=== PATIENT | male | born 1960 | race Caucasian/White ===

== ENCOUNTER → 2016-12-09 | Outpatient (CLI) | payer MEDICARE, MEDICAID ==
[~2016-12-09] MED LIST: ALBUTEROL0.09 MG/A2 INH; AMOXICILLIN500 MG PO; ASPIR 8181 MG PO; ASPIR-LOW81 MG PO; AUGMENTIN 875 M1 TAB PO; BACTRIM DS 8001 TAB PO; CARAFATE1 G1 PO; CIPROFLOXACIN500 MG PO; CLARITIN10 MG PO; COUMADIN2 MG; COUMADIN2 MG PO; COUMADIN3 M1 PO; DICYCLOMINE HYD20 MG PO; FLEXERIL5 MG PO; HYZAAR 12.5 MG-1 TA1 PO; HYZAAR 12.5 MG-1 TAB PO; INDERAL20 MG PO; INDERAL40 MG; IRON325 M1; LASIX; LOVENOX100 MG/1 M PO; LOVENOX80 MG/0.8 SC; MAXZIDE 25 MG-31 TAB PO; MIRALAX POWDER17 G1 PO; MOTRIN800 MG PO; Micro K10 MEQ PO; NORCO 325 MG-51 TAB PO; PERCOCET 325 MG1 TA2 PO; PERCOCET 325 MG1 TA5 PO; PERCOCET 325 MG1 TA7 PO; PLAVIX75 MG PO; PREDNICOT20 MG PO; PREDNISONE10 M1 PO; PREVACID30 M1 PO; PRILOSEC20 MG PO; PROTONIX TR40 MG PO; ROBAXIN500 MG PO; TRAMADOL HCL50 MG PO; ULTRAM50 MG PO; VOLTAREN50 MG PO; ZITHROMAX Z PA250 MG PO; ZOFRAN4 MG; ZOFRAN4 MG PO
[2016-12-09 13:03] LABS: INTERNATIONAL NORM RATIO 2.9 (2.0-3.5); PROTHROMBIN TIME 31.5 SECONDS (9.0-12.4)
== END | disposition home or self-care (01) ==
LOC: LAB 12:09
PROVIDERS: Family Medicine
DX: Z79.01 Long term (current) use of anticoagulants (principal)

== ENCOUNTER 2017-02-12 23:21 | Emergency (ER) | payer MEDICARE, MEDICAID ==
[~2017-02-12] VITALS: Ht 172.7 cm; Wt 86.2 kg
[2017-02-13] MEDS ORDERED: MEDROL DOSEPAK4 MG PO (01:05)
[2017-02-13] MEDS ORDERED: PERCOCET 325 MG1 TA2 PO (01:05)
== END 2017-02-13 01:12 | disposition home or self-care (01) ==
LOC: ED 23:21
DX: M54.16 Radiculopathy, lumbar region (principal); Z79.899 Other long term (current) drug therapy; Z79.82 Long term (current) use of aspirin; Z79.01 Long term (current) use of anticoagulants; Z88.6 Allergy status to analgesic agent; Z88.5 Allergy status to narcotic agent

== ENCOUNTER → 2017-02-23 | Outpatient (CLI) | payer MEDICARE, MEDICAID ==
[~2017-02-23] MED LIST changes: +MEDROL DOSEPAK4 MG PO; +OXYCODONE HCL10 M1 PO
== END | disposition home or self-care (01) ==
LOC: MRI 06:51
DX: M47.896 Other spondylosis, lumbar region (principal); M54.5 Low back pain; R53.1 Weakness; Z85.038 Personal history of other malignant neoplasm of large intestine

== ENCOUNTER 2017-02-24 20:40 | Emergency (ER) | payer MEDICARE, MEDICAID ==
[~2017-02-24] VITALS: Ht 172.7 cm; Wt 86.2 kg
[~2017-02-24 20:40] MED LIST changes: -OXYCODONE HCL10 M1 PO
[2017-02-24] MEDS ORDERED: OXYCODONE HCL10 M1 PO (20:57)
[2017-02-24] MEDS ORDERED: MEDROL DOSEPAK4 MG PO (21:25)
== END 2017-02-24 21:36 | disposition home or self-care (01) ==
LOC: ED 20:40
DX: M54.16 Radiculopathy, lumbar region (principal); M79.604 Pain in right leg; Z88.6 Allergy status to analgesic agent; Z79.82 Long term (current) use of aspirin; Z79.01 Long term (current) use of anticoagulants

== ENCOUNTER → 2017-02-26 | Outpatient (CLI) | payer MEDICARE, MEDICAID ==
[~2017-02-26] MED LIST changes: +OXYCODONE HCL10 M1 PO
[2017-02-26 09:43] LABS: INTERNATIONAL NORM RATIO 3.3 (2.0-3.5); PROTHROMBIN TIME 37.7 SECONDS (9.0-12.4)
== END | disposition home or self-care (01) ==
LOC: LAB 08:54
PROVIDERS: Family Medicine
DX: Z79.01 Long term (current) use of anticoagulants (principal)

== ENCOUNTER 2017-03-02 16:44 | Emergency (ER) | payer MEDICARE, MEDICAID ==
[~2017-03-02] VITALS: Wt 86.2 kg
[2017-03-02] MEDS ORDERED: PERCOCET 325 MG1 TA2 PO (18:43)
== END 2017-03-02 18:51 | disposition home or self-care (01) ==
LOC: ED 16:44
DX: M54.16 Radiculopathy, lumbar region (principal); Z88.6 Allergy status to analgesic agent; Z79.82 Long term (current) use of aspirin; Z79.02 Long term (current) use of antithrombotics/antiplatelets

== ENCOUNTER → 2017-05-18 | Outpatient (CLI) | payer MEDICARE, MEDICAID ==
[2017-05-18 11:52] LABS: INTERNATIONAL NORM RATIO 2.5 (2.0-3.5); PROTHROMBIN TIME 28.2 SECONDS (9.0-12.4)
== END | disposition home or self-care (01) ==
LOC: LAB 10:55
PROVIDERS: Family Medicine
DX: Z79.01 Long term (current) use of anticoagulants (principal)

== ENCOUNTER 2017-07-30 00:51 | Emergency (ER) | payer MEDICARE, MEDICAID ==
[~2017-07-30] VITALS: Ht 172.7 cm; Wt 86.2 kg
== END 2017-07-30 02:50 | disposition home or self-care (01) ==
LOC: ED 00:51
DX: M25.512 Pain in left shoulder (principal); M54.9 Dorsalgia, unspecified; Z88.6 Allergy status to analgesic agent; Z79.82 Long term (current) use of aspirin; Z79.02 Long term (current) use of antithrombotics/antiplatelets

== ENCOUNTER → 2017-09-09 | Outpatient (CLI) | payer MEDICARE, MEDICAID | END | disposition home or self-care (01) | LOC: LAB 10:36 | PROVIDERS: Family Medicine | DX: I82.503 Chronic embolism and thrombosis of unspecified deep veins of lower extremity, bilateral (principal) ==

== ENCOUNTER → 2017-12-02 | Outpatient (CLI) | payer MEDICARE, MEDICAID ==
[2017-12-02 16:17] LABS: INTERNATIONAL NORM RATIO 3.3 (2.0-3.5)
== END | disposition home or self-care (01) ==
LOC: LAB 15:54
PROVIDERS: Family Medicine
DX: I82.503 Chronic embolism and thrombosis of unspecified deep veins of lower extremity, bilateral (principal)

== ENCOUNTER → 2018-01-05 | Outpatient (CLI) | payer MEDICARE, MEDICAID ==
[2018-01-05 11:53] LABS: HEMATOCRIT 50.2 % (42.0-52.0); HEMOGLOBIN 16.5 g/dl (14.0-18.0); MEAN CELL VOLUME 90.8 fl (80.0-94.0); MEAN CORPUSCULAR HGB 29.8 pg (27.0-31.0); MEAN CORPUSCULAR HGB CONC 32.9 g/dl (33.0-37.0); MEAN PLATELET VOLUME 8.9 fl (9.6-12.3); RED BLOOD COUNT 5.53 10*6/uL (4.50-5.90); RED CELL DISTRI WIDTH 13.7 % (0-14.5); WHITE BLOOD COUNT 8.3 10*3/uL (4.8-10.8)
[2018-01-05 12:20] LABS: ALBUMIN 3.6 gm/dl (3.1-4.5); ALKALINE PHOSPHATASE 105 U/L (45-117); BUN 25 mg/dl (7-24); CEA 5.7 ng/mL; CHLORIDE 105 mmol/L (98-107); CHOLESTEROL 219 mg/dL (<200); CREATININE 1.06 mg/dL (0.70-1.30); HDL CHOLESTEROL 41 mg/dl (40-60); LDL CHOLESTEROL 153 mg/dL (9-159); POTASSIUM 4.3 mmol/L (3.5-5.1); SGOT/AST 19 IU/L (3-35); SGPT/ALT 25 U/L (12-78); SODIUM 137 mmol/L (136-145); TOTAL PROTEIN 7.9 gm/dL (6.4-8.2); TRIGLYCERIDES 123 mg/dl (<150); VLDL CHOLESTEROL 25 mg/dL (6-40)
[2018-01-06 09:05] LABS: CANCER ANTIGEN (CA) 125 002303 11.1 U/mL (Not Estab.)
== END | disposition home or self-care (01) ==
LOC: LAB 11:32
PROVIDERS: Family Medicine
DX: C18.9 Malignant neoplasm of colon, unspecified (principal); E78.00 Pure hypercholesterolemia, unspecified; G89.3 Neoplasm related pain (acute) (chronic); E55.9 Vitamin D deficiency, unspecified; R19.09 Other intra-abdominal and pelvic swelling, mass and lump

== ENCOUNTER → 2018-02-03 | Outpatient (CLI) | payer MEDICARE, MEDICAID | END | disposition home or self-care (01) | LOC: CT 10:58 | DX: K80.20 Calculus of gallbladder without cholecystitis without obstruction (principal); N28.9 Disorder of kidney and ureter, unspecified; Z85.038 Personal history of other malignant neoplasm of large intestine ==

== ENCOUNTER → 2018-02-07 | Outpatient (CLI) | payer MEDICARE, MEDICAID | END | disposition home or self-care (01) | LOC: MRI 03:10 | DX: R93.6 Abnormal findings on diagnostic imaging of limbs (principal); Z85.038 Personal history of other malignant neoplasm of large intestine ==

== ENCOUNTER → 2018-04-21 | Outpatient (CLI) | payer MEDICARE ==
[2018-04-21 11:10] LABS: INTERNATIONAL NORM RATIO 3.3 (2.0-3.5)
== END | disposition home or self-care (01) ==
LOC: LAB 10:25
PROVIDERS: Family Medicine
DX: Z51.81 Encounter for therapeutic drug level monitoring (principal); Z79.01 Long term (current) use of anticoagulants

== ENCOUNTER → 2018-07-20 | Outpatient (CLI) | payer MEDICARE ==
[~2018-07-20] MED LIST changes: +CYCLOBENZAPRINE10 MG PO; +PREDNISONE50 MG PO
== END | disposition home or self-care (01) ==
LOC: RAD 13:58
DX: M54.2 Cervicalgia (principal)

== ENCOUNTER → 2018-07-27 | Outpatient (CLI) | payer MEDICARE | END | disposition home or self-care (01) | LOC: LAB 12:57 | PROVIDERS: Family Medicine | DX: Z51.81 Encounter for therapeutic drug level monitoring (principal); Z79.01 Long term (current) use of anticoagulants ==

== ENCOUNTER → 2018-08-24 | Outpatient (CLI) | payer MEDICARE | END | disposition home or self-care (01) | LOC: MRI 08-22 09:00 | DX: M47.892 Other spondylosis, cervical region (principal); M48.02 Spinal stenosis, cervical region; M50.221 Other cervical disc displacement at C4-C5 level; M50.223 Other cervical disc displacement at C6-C7 level ==

== ENCOUNTER → 2018-09-26 | Outpatient (CLI) | payer MEDICARE ==
[2018-09-26 14:59] LABS: INTERNATIONAL NORM RATIO 3.8 (2.0-3.5)
== END | disposition home or self-care (01) ==
LOC: LAB 13:30
PROVIDERS: Nurse Practitioner Family
DX: Z79.01 Long term (current) use of anticoagulants (principal)

== ENCOUNTER → 2018-10-03 | Outpatient (CLI) | payer MEDICARE | LOC: RAD 19:52 | DX: M48.02 Spinal stenosis, cervical region (principal); M25.532 Pain in left wrist; M25.512 Pain in left shoulder ==